=== PATIENT | male | born 1950 | race Asian ===

== ENCOUNTER → 2020-04-16 | Day surgery (SDC) | payer BC, OTHER, SELFPAY ==
[2020-04-16] VITALS (15 sets, daily range): BP systolic 105–141; BP diastolic 53–71
[~2020-04-16] VITALS: Ht 170.2 cm; Wt 55.8 kg
--- NOTE | 2020-04-16 06:10 | NUR ---
ADMIT TO OPS FOR LEFT HEART CATHETERIZATION. ORIENT TO UNIT AND PLAN OF CARE. 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 DENIES PAIN. NPO SINCE 444 THIS AM TOOK BP MEDS ALTACE 5MG AND ATENOLOL 25MG WITH SIP OF WATER. LAST FOOD AT 1900 1--. VERBALIZED UNDERSTANDING OF PROCEDURE, SON AT BEDSIDE. LABS ORDERED STAT. SIDE RAILS UP X2. CALL LIGHT IN REACH.
--- NOTE | 2020-04-16 07:00 | NUR ---
MIGUELINA HOPE JACK PRIZER HERE. UPDATED WITH PT STATUS. SHE IS ABLE TO DRAW LABS STAT AND TAKE TO LAB. CONSENT SIGNED. IV #20 ANGIO STARTED LAC NORMAL SALINE TKO. SHAVE PREP AND CAROL WIPES COMPLETED. HAS BRACELETS IN PLACE TO RIGHT ARM. OK TO LEAVE ON AT THIS TIME PER MIGUELINA.
--- NOTE | 2020-04-16 07:15 | NUR ---
ZAIRA IDENTIFIED. PT TAKEN TO [facility]IA [employer]. PT HAS GLASSES AND HEARING AIDS WITH HIM IN PLACE.
--- NOTE | 2020-04-16 08:40 | NUR ---
RECEIVED THE PATIENT BACK FROM [facility] COORDINATOR; PATIENT AWAKE AND ORIENTED TO PERSON, PLACE AND TIME. PATIENT DENIED ANY PAIN AT THIS TIME. RIGHT GROIN CATH SITE NOTED WITH TEGADERM INTACT. NO BLEEDING NOTED AT THIS TIME. IV SITE TO LAC INTACT. INSTRUCTED PATIENT TO LAY FLAT AND KEEP RLE STRAIGHT FOR 4HOURS ORDERED. POST PROCEDURE CARE INIITATED. CALL LIGHT WITHIN REACH. SIDE RAILS UP X2. GURNEY AT LOWEST POSITION.
[2020-04-16 09:24] LABS: CARBON DIOXIDE 22.9 mmol/L (21-32); CHLORIDE SERUM 106 mmol/L (98-107); CREATININE SERUM 0.7 mg/dL (0.7-1.3); GLUCOSE SERUM 180 mg/dL (74-106); POTASSIUM SERUM 4.6 mmol/L (3.5-5.1); SODIUM SERUM 143 mmol/L (136-145)
--- NOTE | 2020-04-16 09:56 | NUR ---
0955 PT ABLE TO URINATE 500ML CLEAR YELLOW URINE WITHOUT DIFFICULTY. ALSO DRANK A GLUCERNA NO N/V NOTED. PT RESTING SPEAKING WITH HIS . RESP EVEN AND UNLABORED. VS ARE STABLE ABLE TO PALPATE PEDAL PULSE R FOOT. DRSG DRY, AND INTACT. CONT TO MONITOR NO DISTRESS NOTED
--- NOTE | 2020-04-16 10:00 | NUR ---
PATIENT TOLERATED WELL WITH CARDIAC DIET FOR BREAKFAST.
--- NOTE | 2020-04-16 10:50 | NUR ---
PATIENT IS RESTING IN BED WITH NO DISTRESS NOTED. RIGHT PEDAL PULSE IS PALPALBE.
[2020-04-16 11:04] LABS: BASOPHIL % 1.1 % (0-2); PLATELET COUNT 208 x10^3mcL (130-400); RED CELL DISTRIBUTION WIDTH 12.7 % (11.5-14.5)
--- NOTE | 2020-04-16 11:45 | NUR ---
THE CATH SITE AT RIGHT GROIN WITH TEGARDERM INTACT; NO BLEEDING NOTED. RIGHT LEG WAS WARM AND PINK. RIGHT PEDAL PULSE PALPABLE. PATIENT DENIED ANY NUMBNESS OR TINGLING TO RLE.
--- NOTE | 2020-04-16 13:31 | NUR ---
1315 PT HERE TO ASSESS PT. PT ABLE TO AMBULATE WITHOUT ASSIST. DENIES PAIN RESP EVEN AND UNLABORED. VS ARE STABLE DENIES CP SON AT BEDSIDE. NO DISTRESS CONT TO MONITOR ALSO ABLE TO PALPATE PEDAL PULSE DRSG OVER RIGHT GROIN AREA DRY AND INTACT.
--- NOTE | 2020-04-16 14:48 | NUR ---
1400 PT MED CLEAR FOR DISCHRGE HOME. MARK TEGADERM IN TACT ON RIGHT UPPER GROIN AREA. SL DISCONTINUED IN TACT WITH CATH TIP IN TACT. PT TO FOLLOW UP WITH DR RAHMAN IN 2 WEEKS DISCHARGE INSTRUCTIONS EXPLANNED TO PT AND SON. KEEP AREA CLEAN AND DRY. PT VERBALIZED UNDERSTANDING OF DISCHARGE INSTRUCTIONS AND WAS TAKEN VIA W/C IN STABLE CONDITION
== END | disposition home or self-care (01) ==
LOC: DS 06:08 → OR 07:30
PROVIDERS: ATTEND Internal Medicine Geriatric Medicine
DX: I25.10 Atherosclerotic heart disease of native coronary artery without angina pectoris (principal); Z20.828 Contact with and (suspected) exposure to other viral communicable diseases
CPT/HCPCS: CLHCL; C1760; C1769; C1894; J1644; J2001; J2250; J3010; J3490; J7040; Q9967; U0003